=== PATIENT | male | born 1975 | race African-American/Black ===

== ENCOUNTER 2022-02-24 17:24 | Emergency (ER) | payer OTHER ==
[~2022-02-24] VITALS: Ht 180.3 cm; Wt 96.6 kg
[2022-02-24] MEDS ORDERED: CEPHALEXIN500 M1 PO (22:44)
== END 2022-02-24 22:50 | disposition home or self-care (01) ==
LOC: FER 17:24
DX: S61.212A Laceration without foreign body of right middle finger without damage to nail, initial encounter (principal); I10 Essential (primary) hypertension; Z23 Encounter for immunization; Z79.899 Other long term (current) drug therapy; W45.8XXA Other foreign body or object entering through skin, initial encounter; Y92.009 Unspecified place in unspecified non-institutional (private) residence as the place of occurrence of the external cause
CPT/HCPCS: 73140; 90471; 90715

== ENCOUNTER 2022-02-24 23:53 | Emergency (ER) | payer OTHER ==
[~2022-02-24 23:53] MED LIST: CEPHALEXIN500 M1 PO
== END 2022-02-25 00:17 | disposition left against medical advice (07) ==
LOC: FER 23:53
DX: S61.419D Laceration without foreign body of unspecified hand, subsequent encounter (principal); Z53.21 Procedure and treatment not carried out due to patient leaving prior to being seen by health care provider
CPT/HCPCS: 99281